=== PATIENT | female | born 1980 ===

== ENCOUNTER 2019-03-10 15:42 | Emergency (ER) | payer BC, OTHER ==
--- NOTE | 2019-03-10 16:55 | CT ---
EXAM DESCRIPTION: Cervical Spine: Computed Tomography. CLINICAL HISTORY: 39 years Female neck pain COMPARISON: None Available. TECHNIQUE: Spiral, axial 2.5 x 2.5 mm scans through the cervical spine without contrast. Coronal and sagittal 2.0 mm Reconstructions. Total Exam DLP: 429.5 mGy-cm. This exam was performed according to our departmental dose-optimization program which includes automated exposure control, adjustment of the mA and/or kV according to patient size and/or use of iterative reconstruction technique; to reduce radiation dose to as low as reasonably achievable (ALARA). FINDINGS: C5-C6: Disc space narrowing with anterior small disc bulge and endplate ridging. Trace retrolisthesis. Posterior disc no bulging. Disc space decreased. Bilateral uncinate spurs larger on the left than right with bilateral moderate neural foraminal narrowing. No canal stenosis. Facets are negative. No fracture. Minimal bilateral foraminal narrowing at C4-C5. Disc and disc space are negative. No facet abnormalities. No fracture. Other disc spaces are normally maintained with no significant disc bulging. Canal and neural foramina are patent. Posterior elements are unremarkable. Atlantoaxial joint and atlantooccipital joints are negative. No abnormalities in the C1-C2 facets. IMPRESSION: 1. Minimal spondylosis at C5-C6 with disc space loss. No posterior disc bulging or canal stenosis. Moderate bilateral neural foraminal narrowing. No acute bony abnormality. 2. Mild bilateral C4-C5 neural foraminal narrowing. Disc space maintained. No canal stenosis. No acute bony abnormality. Electronically signed by: Aguilar Ashraf MD 03/10/2019 4:54 PM CDT
--- NOTE | 2019-03-10 17:35 | ED.PDOC ---
History of Present Illness - General Chief Complaint: Neck Injury/Pain Time Seen by Provider: 03/10/19 16:55 Source: patient Exam Limitations: no limitations - History of Present Illness Initial Comments: NECK PAIN. A SPECIAL ED STUDENT JUMPED ON THE PATIENT'S NECK. THEN LATER THAT DAY HE HIT HER ON BACK OF HEAD X 3. 1 WK AGO AND PAIN PERSISTING, THUS SHE WAS APPROPRIATELY CONCERNED ABOUT A FRACTURE. Timing/Duration: 1 week Severity: severe Improving Factors: nothing Worsening Factors: movement Associated Symptoms: denies symptoms Allergies/Adverse Reactions: Allergies NO KNOWN ALLERGY Allergy (Verified 03/10/19 16:12) Review of Systems - Review of Systems Constitutional: States: no symptoms reported EENTM: Denies: eye pain, ear pain, throat pain, mouth pain Respiratory: States: no symptoms reported Cardiology: States: no symptoms reported Gastrointestinal/Abdominal: States: no symptoms reported Genitourinary: States: no symptoms reported Musculoskeletal: States: neck pain. Denies: back pain Skin: States: no symptoms reported Neurological: Denies: numbness, paresthesia, tingling, weakness Endocrine: States: no symptoms reported Hematologic/Lymphatic: States: no symptoms reported All other Systems: Reviewed and Negative Physical Exam - Physical Exam General Appearance: Alert, Well Groomed Eye Exam: bilateral normal Ears, Nose, Throat: hearing grossly normal, normal ENT inspection, normal pharynx Neck: supple, normal inspection, other - HAS FROM BUT IS PAINFUL WHEN POSTERIORLY FLEXES NECK. MIDLINE AND R PARASPINOUS TTP. 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 CT POS FOR CHRONIC DJD BUT NEG FOR ACUTE PATHOLOGY/FRX. 03/10/19 17:44 Departure - Departure Clinical Impression: Neck pain Cervical spondylosis Qualifiers: Spinal osteoarthritis complication: unspecified spinal osteoarthritis Qualified Code(s): M47.812 - Spondylosis without myelopathy or radiculopathy, cervical re gion Acute neck sprain Qualifiers: Encounter type: initial encounter Qualified Code(s): S13.9XXA - Sprain of joints and ligaments of unspecified parts of neck, initial encounter Disposition: Discharge to Home or Self Care Condition: Good Departure Forms: ED Discharge - Pt. Copy, Patient Portal Self Enrollment Instructions: DI for Neck Sprain Diet: resume usual diet Activity: increase activity as tolerated Additional Instructions: As discussed, apply cold packs, take high dose ibuprofen for 1 week, and rest the area.
[2019-03-10 18:17] VITALS: BP 113/77; O2SAT 100
== END 2019-03-10 17:50 | disposition home or self-care (01) ==
LOC: ER 15:42
DX: S13.9XXA Sprain of joints and ligaments of unspecified parts of neck, initial encounter (principal); M47.812 Spondylosis without myelopathy or radiculopathy, cervical region; W50.0XXA Accidental hit or strike by another person, initial encounter; Y92.9 Unspecified place or not applicable